=== PATIENT | male | born 1965 | race African-American/Black ===

== ENCOUNTER 2017-02-21 15:29 | Emergency (ER) | payer OTHER ==
[~2017-02-21] VITALS: Ht 170.2 cm; Wt 88.5 kg
--- NOTE | ~2017-02-21 | EKG ---
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: : 1965 Requested By: Stacia West Order Number: [id number] MD: Estevan Castillo Measurements Intervals [place] Rate: 113 P: 69 [place]: 150 QRS: 49 QRSD: 82 T: 40 QT: 367 QTc: 504 Interpretive Statements Sinus tachycardia LAE, consider biatrial enlargement Borderline T wave abnormalities Prolonged QT interval No previous ECG available for comparison Electronically Signed On 02-24-2017 11:52:19 CDT by Estevan Castillo [email or web address] <ELECTRONICALLY SIGNED> By: Estevan Castillo MD, [facility] 02/24/17 1152 1541 1541 Estevan Castillo MD, FACC /EPI
[2017-02-21 16:02] LABS: ABSOLUTE NEUTROPHILS 3.8 thou/uL (1.4-8.2); BASOPHILS 0.6 % (0.0-2.0); EOSINOPHILS 1.4 % (0.0-3.0); HEMATOCRIT 41.8 % (42.0-52.0); HEMOGLOBIN 14.7 gm/dL (14.0-18.0); LYMPHOCYTES 34.9 % (24.0-44.0); MCH 31.8 pg (26.0-34.0); MCHC 35.3 g/dL (28.0-37.0); MONOCYTES 10.4 % (1.0-8.0); PLATELET COUNT 247 thou/uL (150-400); POLYS 52.7 % (36.0-66.0); RBC 4.64 mil/uL (4.50-6.00); RDW 14.1 % (10.5-14.5); WBC 7.2 thou/uL (4.0-11.0)
[2017-02-21 16:03] LABS: MANUAL DIFF NO
[2017-02-21 16:12] LABS: ANION GAP 12 mmol/L (7-16); BUN 11 mg/dL (7-18); CALCIUM 8.1 mg/dL (8.5-10.1); CHLORIDE 108 mmol/L (98-107); CO2 24 mmol/L (21-32); CREATININE 1.1 mg/dL (0.7-1.3); GLUCOSE 133 mg/dL (74-106); POTASSIUM 3.5 mmol/L (3.5-5.1); SODIUM 144 mmol/L (136-145)
[2017-02-21 16:19] LABS: TROPONIN-I < 0.04 ng/mL (<0.04-0.07)
[2017-02-21 17:43] VITALS: BP 149/86
== END 2017-02-21 17:46 | disposition left against medical advice (07) ==
LOC: ER 15:29
PROVIDERS: Nurse Practitioner Family
DX: R07.9 Chest pain, unspecified (principal); F17.210 Nicotine dependence, cigarettes, uncomplicated; Z53.21 Procedure and treatment not carried out due to patient leaving prior to being seen by health care provider